=== PATIENT | male | born 1980 | race African-American/Black ===

== ENCOUNTER 2016-10-17 06:32 | Emergency (ER) | payer OTHER ==
[~2016-10-17] VITALS: Ht 180.3 cm; Wt 104.1 kg
[~2016-10-17 06:32] MED LIST: ZOFRAN ODT4 MG PO
[2016-10-17 07:54] LABS: ADD MIUA? NO; BILIRUBIN NEGATIVE; BLOOD NEGATIVE; COLOR YELLOW ((YELLOW)); GLUCOSE (STRIP) NEGATIVE; KETONES NEGATIVE; LEUKOCYTES NEGATIVE; NITRITE NEGATIVE; PROTEIN (STRIP) NEGATIVE; SPECIFIC GRAVITY 1.024 (1.000-1.030); UCUL ADDED? NO; UROBILINOGEN 0.2 MG/DL (0.2-1.0)
[2016-10-17 07:57] LABS: HEMATOCRIT 38.5 % (38.0-50.0); MCH 28.3 PG (29.0-34.0); MCHC 33.2 G/DL (30.0-36.0); MCV 85.2 FL (86-99); MEAN PLAT.VOLUME 10.5 uM^3 (9.0-12.4); PLATELET COUNT 182 K/uL (156-360); RBC DIS.WIDTH-CV 12.9 % (11.8-14.6); RBC DIS.WIDTH-SD 39.7 % (39-53); RED BLOOD COUNT 4.52 M/uL (4.00-5.50); WHITE BLOOD COUNT 3.9 K/uL (4.1-10.2)
[2016-10-17 08:17] LABS: CHLORIDE 106 mEq/L (99-109); POTASSIUM 4.3 mEq/L (3.7-5.4); SODIUM 138 mEq/L (136-147)
[2016-10-17 08:20] LABS: ANION GAP 12 MEQ/L (2-14)
[2016-10-17 08:21] LABS: TOTAL BILIRUBIN 0.5 mg/dL (0.0-1.0)
[2016-10-17 08:23] LABS: ALKALINE PHOSPHATASE 104 IU/L (3-129); GFR ESTIMATE (CALCULATED) > 59 mL/min/
[2016-10-17 08:24] LABS: UREA NITROGEN (BUN) 13 mg/dL (9-23)
[2016-10-17 08:26] LABS: LIPASE 40 U/L (1.0-51.0)
[2016-10-17 08:49] LABS: GLUCOSE 123 mg/dL (70-99)
[2016-10-17 09:02] LABS: EOSINOPHIL (%) 1.5 % (0-5); EOSINOPHIL COUNT 0.1 K/uL (0-0.3); HEMATOLOGY COMMENT 1 SMEAR COMPATIBLE; INSTRUMENT ABS NEUTROPHIL CT 2.1 K/uL; LYMPHOCYTE COUNT 1.3 K/uL (1.0-2.8); MONOCYTE (%) 9.8 % (3-12); MONOCYTE COUNT 0.4 K/uL (0-0.8); NEUTROPHIL (%) 53.9 % (45-76); NEUTROPHIL COUNT 2.1 K/uL (1.8-6.4); PLAT.SUFFICIENCY ADEQUATE
[2016-10-17 09:14] VITALS: BP 156/96
[2016-10-17] MEDS ORDERED: CIPRO500 MG PO (10:37)
[2016-10-17] MEDS ORDERED: FLAGYL500 MG PO (10:37)
[2016-10-17] MEDS ORDERED: BENTYL10 MG PO (10:37)
== END 2016-10-17 10:36 | disposition home or self-care (01) ==
LOC: EXP 06:32 → EME 06:32 → EXP 10:36
PROVIDERS: Emergency Medicine
DX: K52.9 Noninfective gastroenteritis and colitis, unspecified (principal)
CPT/HCPCS: 74177; 80053; 81003; 83690; 85025; 93005; 99281; 99284